=== PATIENT | male | born 1950 | race Caucasian/White ===

== ENCOUNTER 2019-11-16 08:28 | Day surgery (SDC) | payer MEDICARE, BC ==
[~2019-11-16] VITALS: Ht 170.2 cm; Wt 80.7 kg
[~2019-11-16 08:28] MED LIST: AREDS 2 PO; CO Q200C10 PO; ECOT81TA5 PO; EZET10TA21 PO; MULTCAP PO; NS 1,000 ML IV ONE; SIMV20TA22 PO; propofoL 200 MG/20 ML VIAL As Ordered ONE
--- NOTE | 2019-11-16 09:52 | ROOR ---
Patient Name: Joshua Early Procedure Date: 11/16/2019 9:23 AM Date of : 1950 Age: 69 Room: [facility] Gender: Male Note Status: Finalized Procedure: Total Colonoscopy to Cecum + Cold Snare Polypectomy + Hemoclips Indications: Screening for colorectal malignant neoplasm Providers: Yrn Motley MD Referring MD: SIM VILLA DO Requesting Provider: Medicines: Monitored Anesthesia Care Complications: No immediate complications. Procedure: Pre-Anesthesia Assessment: - The heart rate, respiratory rate, oxygen saturations, blood pressure, adequacy of pulmonary ventilation, and response to care were monitored throughout the procedure. The Colonoscope was introduced through the anus and advanced to the cecum, identified by appendiceal orifice and ileocecal valve. The colonoscopy was performed without difficulty. The patient tolerated the procedure well. The quality of the bowel preparation was excellent. Findings: The perianal and digital rectal examinations were normal. Non-bleeding internal hemorrhoids were found during retroflexion. The hemorrhoids were small and Grade I (internal hemorrhoids that do not prolapse). A small polyp was found at 50 cm proximal to the anus. The polyp was sessile. The polyp was removed with a jumbo cold forceps. Resection and retrieval were complete. Two sessile polyps were found in the cecum. The polyps were small in size. These polyps were removed with a cold snare. Resection and retrieval were complete. To prevent bleeding after the polypectomy, three hemostatic clips were successfully placed (MR conditional). There was no bleeding at the end of the procedure. The exam was otherwise without abnormality on direct and retroflexion views. Impression: - Non-bleeding internal hemorrhoids. - One small polyp at 50 cm proximal to the anus, removed with a jumbo cold forceps. Resected and retrieved. - Two small polyps in the cecum, removed with a cold snare. Resected and retrieved. Clips (MR conditional) were placed. - The examination was otherwise normal on direct and retroflexion views. - The exam was otherwise normal to the cecum. Recommendation: - Patient has a contact number available for emergencies. The signs and symptoms of potential delayed complications were discussed with the patient. Return to normal activities tomorrow. Written discharge instructions were provided to the patient. - High fiber diet. - Discharge patient to home. - Continue present medications. - Await pathology results. - Telephone GI clinic for pathology results in 1 week. - Repeat colonoscopy for surveillance based on pathology results. - The findings and recommendations were discussed with the patient's family. Yrn Motley MD Yrn Motley MD 11/16/2019 9:51:42 AM Electronically signed by Yrn Motley MD Number of Addenda: 0 Note Initiated On: 11/16/2019 9:23 AM Estimated Blood Loss: Estimated blood loss: none.
[2019-11-16 10:10] VITALS: BP 148/66
== END 2019-11-16 10:23 | disposition home or self-care (01) ==
LOC: M OPP 08:28
PROVIDERS: ATTEND Internal Medicine Gastroenterology
DX: Z12.11 Encounter for screening for malignant neoplasm of colon (principal); D12.0 Benign neoplasm of cecum; D12.6 Benign neoplasm of colon, unspecified; K64.0 First degree hemorrhoids; E78.00 Pure hypercholesterolemia, unspecified; Z79.899 Other long term (current) drug therapy

== ENCOUNTER 2023-03-06 10:14 | Day surgery (SDC) | payer MEDICARE, BC ==
[~2023-03-06] VITALS: Ht 170.2 cm; Wt 78.9 kg
[~2023-03-06 10:14] MED LIST changes: +CENT1TAB2 PO; +PRESCAP PO; +SYST1SOL4 OU; -propofoL 200 MG/20 ML VIAL As Ordered ONE
[2023-03-06] MEDS ORDERED: propofoL 200 MG/20 ML VIAL As Ordered ONE (12:21)
[2023-03-06] MEDS ORDERED: LIDOCAINE 2% 100MG/5ML SDV (FOR ANES.) As Ordered ONE (12:21)
[2023-03-06 13:01] VITALS: BP 148/92; TEMP 96.1; O2SAT 99
== END 2023-03-06 13:03 | disposition home or self-care (01) ==
LOC: M OPP 10:14
PROVIDERS: ATTEND Internal Medicine Gastroenterology
DX: Z12.11 Encounter for screening for malignant neoplasm of colon (principal); Z86.010 Personal history of colon polyps; D12.3 Benign neoplasm of transverse colon; Z79.02 Long term (current) use of antithrombotics/antiplatelets; Z88.8 Allergy status to other drugs, medicaments and biological substances